=== PATIENT | male | born 1975 | race Caucasian/White ===

== ENCOUNTER → 2020-10-31 | Outpatient (CLI) | payer BC ==
[~2020-10-31] MED LIST: ESOM40CA35; GABA800T4; HYDR-3719; MELO15TA28; NORT75CA2; TIZA4TAB4
== END ==
LOC: M LABSMTC 12:59
PROVIDERS: ATTEND Anesthesiology
DX: Z01.812 Encounter for preprocedural laboratory examination (principal); Z20.822 Contact with and (suspected) exposure to COVID-19

== ENCOUNTER 2020-11-05 12:29 | Day surgery (SDC) | payer OTHER ==
[~2020-11-05] VITALS: Ht 162.6 cm; Wt 86.6 kg
[~2020-11-05 12:29] MED LIST changes: +NS 1,000 ML IV ONE
[2020-11-05] MEDS ORDERED: LIDOCAINE 2% 100MG/5ML SDV (FOR ANES.) As Ordered ONE (13:31)
[2020-11-05] MEDS ORDERED: propofoL 200 MG/20 ML VIAL As Ordered ONE (13:31)
[2020-11-05] MEDS ORDERED: fentaNYL 100 MCG/2 ML INJECTION (J3010) As Ordered ONE (13:31)
--- NOTE | 2020-11-05 14:08 | ROOR ---
Patient Name: Gordon Lundberg Procedure Date: 11/05/2020 1:34 PM Date of : 1975 Age: 45 Room: [facility] Gender: Male Note Status: Finalized Procedure: Upper GI endoscopy Indications: Heartburn Providers: Hernandez ARELLANO MD Referring MD: Manjinder Schroeder Md Requesting Provider: Medicines: Monitored Anesthesia Care Complications: No immediate complications. Procedure: Pre-Anesthesia Assessment: - The heart rate, respiratory rate, oxygen saturations, blood pressure, adequacy of pulmonary ventilation, and response to care were monitored throughout the procedure. The Endoscope was introduced through the mouth, and advanced to the second part of duodenum. The upper GI endoscopy was accomplished without difficulty. The patient tolerated the procedure well. Findings: The examined esophagus was normal. Scattered mild inflammation characterized by erythema was found in the gastric antrum. Biopsies were taken with a cold forceps for histology. Mildly erythematous mucosa was found in the second portion of the duodenum. Biopsies were taken with a cold forceps for histology. Impression: - Normal esophagus. - Mild gastritis. Biopsied. - Otgherwise normal stomach. - Erythematous and slightly flattened duodenal mucosa. Biopsied. - Otherwise normal duodenum. Recommendation: - Use Prilosec (omeprazole) 20 mg PO daily. - No ibuprofen, naproxen, or other non-steroidal anti-inflammatory drugs. - Telephone endoscopist for pathology results in 2 weeks. Procedure Code(s): --- Professional --- 83793, Esophagogastroduodenoscopy, flexible, transoral; with biopsy, single or multiple Diagnosis Code(s): --- Professional --- R12, Heartburn K31.89, Other diseases of stomach and duodenum K29.70, Gastritis, unspecified, without bleeding CPT copyright 2019 [employer]. All rights reserved. The codes documented in this report are preliminary and upon hiv cts specialist review may be revised to meet current compliance requirements. Hernandez Arellano MD Hernandez ARELLANO MD 11/05/2020 2:07:40 PM Electronically signed by Hernandez ARELLANO MD Number of Addenda: 0 Note Initiated On: 11/05/2020 1:34 PM Estimated Blood Loss: Estimated blood loss: none.
--- NOTE | 2020-11-05 14:23 | ROOR ---
Patient Name: Gordon Lundberg Procedure Date: 11/05/2020 1:35 PM Date of : 1975 Age: 45 Room: [facility] Gender: Male Note Status: Finalized Procedure: Colonoscopy Indications: Generalized abdominal pain, Constipation, Chronic diarrhea Providers: Hernandez ARELLANO MD Referring MD: Manjinder Schroeder Md Requesting Provider: Medicines: Monitored Anesthesia Care Complications: No immediate complications. Procedure: Pre-Anesthesia Assessment: - The heart rate, respiratory rate, oxygen saturations, blood pressure, adequacy of pulmonary ventilation, and response to care were monitored throughout the procedure. The Colonoscope was introduced through the anus and advanced to 10 cm into the ileum. The colonoscopy was somewhat difficult due to unsatisfactory bowel prep. Successful completion of the procedure was aided by lavage. The patient tolerated the procedure well. The quality of the bowel preparation was unsatisfactory. (mag citrate/trilyte) Findings: The perianal and digital rectal examinations were normal. The terminal ileum appeared normal. (EXAM: Complete, PREP: Suboptimal) The colon is grossly normal without large tumors or obstructing lesions. Unable to perform adequate detail examination. Small lesions may have been missed. Impression: - Preparation of the colon was unsatisfactory. - The colon is grossly normal without large tumors or obstructing lesions. Unable to perform adequate detail examination. Small lesions may have been missed. - Small internal hemorrhoids. - No specimens collected. Recommendation: - Repeat colonoscopy at next available appointment (within 3 months) because the bowel preparation was suboptimal. - (Rec alternate colon preparation for next colonoscopy) Procedure Code(s): --- Professional --- 57563, Colonoscopy, flexible; diagnostic, including collection of specimen(s) by brushing or washing, when performed (separate procedure) Diagnosis Code(s): --- Professional --- K52.9, Noninfective gastroenteritis and colitis, unspecified K59.00, Constipation, unspecified R10.84, Generalized abdominal pain CPT copyright 2019 [employer]. All rights reserved. The codes documented in this report are preliminary and upon addictions recovery specialist review may be revised to meet current compliance requirements. Hernandez Arellano MD Hernandez ARELLANO MD 11/05/2020 2:22:53 PM Electronically signed by Hernandez ARELLANO MD Number of Addenda: 0 Note Initiated On: 11/05/2020 1:35 PM Estimated Blood Loss: Estimated blood loss: none.
[2020-11-05 14:45] VITALS: BP 165/77
== END 2020-11-05 14:46 | disposition home or self-care (01) ==
LOC: M OPP 12:29
PROVIDERS: ATTEND Internal Medicine Gastroenterology
DX: R10.84 Generalized abdominal pain (principal); K59.00 Constipation, unspecified; K52.9 Noninfective gastroenteritis and colitis, unspecified; R12 Heartburn; D13.1 Benign neoplasm of stomach; D13.2 Benign neoplasm of duodenum; K31.89 Other diseases of stomach and duodenum; K29.70 Gastritis, unspecified, without bleeding; M19.90 Unspecified osteoarthritis, unspecified site; G43.909 Migraine, unspecified, not intractable, without status migrainosus; G62.9 Polyneuropathy, unspecified; G47.30 Sleep apnea, unspecified; F17.210 Nicotine dependence, cigarettes, uncomplicated; R91.8 Other nonspecific abnormal finding of lung field; Z88.2 Allergy status to sulfonamides; Z88.4 Allergy status to anesthetic agent; Z79.899 Other long term (current) drug therapy; Z83.71 Family history of colonic polyps; Z80.1 Family history of malignant neoplasm of trachea, bronchus and lung; Z82.49 Family history of ischemic heart disease and other diseases of the circulatory system; Z80.52 Family history of malignant neoplasm of bladder; Z80.0 Family history of malignant neoplasm of digestive organs
CPT/HCPCS: 43239; 45378; 88305; J3010

== ENCOUNTER 2021-06-27 08:19 | Day surgery (SDC) | payer OTHER ==
[~2021-06-27] VITALS: Ht 162.6 cm; Wt 82.1 kg
--- OUTSIDE RECORDS SUMMARY | 2021-06-27 08:23 | CCD ---
Author Author [facility] Organization [facility] Address Unknown Phone Unavailable Care Team Providers Care Dumper Operator Name Role Phone JB IGLESIAS MD Unavailable Unavailable REINDL, JB HERRERA Unavailable Unavailable REINDL, JB HERRERA Unavailable Unavailable REINDL, JB HERRERA Unavailable Unavailable REINDL, JB HERRERA Unavailable Unavailable REINBOB, JB HERRERA Unavailable Unavailable KELSIE, JB HERRERA Unavailable Unavailable REINBOB, JB HERRERA Unavailable Unavailable REINBOB, JB HERRERA Unavailable Unavailable REINBOB, JB HERRERA Unavailable Unavailable REINBOB, JB HERRERA Unavailable Unavailable REINBOB, JB HERRERA Unavailable Unavailable KLESIE, JB HERRERA Unavailable Unavailable KELSIE, JB HERRERA Unavailable Unavailable REINBOB, JB HERRERA Unavailable Unavailable REINDL, JB HERRERA Unavailable Unavailable REINDL, JB HERRERA Unavailable Unavailable REINDL, JB HERRERA Unavailable Unavailable REINDL, JB HERRERA Unavailable Unavailable REINBOB, JB HERRERA Unavailable Unavailable REINJB ROJAS MD Unavailable Unavailable REINDLJB MD Unavailable Unavailable REINBOB, JB HERRERA Unavailable Unavailable KELSIE, JB HERRERA Unavailable Unavailable KELSIE, JB HERRERA Unavailable Unavailable REINBOB, JB HERRERA Unavailable Unavailable REINBOB, JB HERRERA Unavailable Unavailable REINBOB, JB HERRERA Unavailable Unavailable KELSIE, JB HERRERA Unavailable Unavailable KELSIE, JB HERRERA Unavailable Unavailable KELSIE, JB HERRERA Unavailable Unavailable KELSIE, JB HERRERA Unavailable Unavailable KELSIE, JB HERRERA Unavailable Unavailable KELSIE, JB HERRERA Unavailable Unavailable REINBOB, JB HERRERA Unavailable Unavailable REINBOB, JB HERRERA Unavailable Unavailable KELSIE, JB HERRERA Unavailable Unavailable KELSIE, JB HERRERA Unavailable Unavailable REINDL, JB HERRERA Unavailable Unavailable REINDL, JB HERRERA Unavailable Unavailable REINDL, JB HERRERA Unavailable Unavailable REINDL, JB HERRERA Unavailable Unavailable Ross, H Karishma ROLLER PRINT TENDER Unavailable [phone] Ross, H Karishma ROLLER PRINT TENDER Unavailable [phone] Ross, H Karishma ROLLER PRINT TENDER Unavailable [phone] Ross, H Karishma ROLLER PRINT TENDER Unavailable [phone] Ross, H Karishma ROLLER PRINT TENDER Unavailable [phone] Ross, H Karishma ROLLER PRINT TENDER Unavailable [phone] Ross, H Karishma ROLLER PRINT TENDER Unavailable [phone] Ross, H Karishma ROLLER PRINT TENDER Unavailable [phone] Hadian, Manjinder Unavailable Unavailable Hadian, Manjinder Unavailable Unavailable Hadian, Manjinder Unavailable Unavailable Hadian, Manjinder Unavailable Unavailable Hadian, Manjinder Unavailable Unavailable Hadian, Manjinder Unavailable Unavailable Hadian, Manjinder Unavailable Unavailable Hadian, Manjinder Unavailable Unavailable Hadian, Manjinder Unavailable Unavailable Hadian, Manjinder Unavailable Unavailable Hadian, Manjinder Unavailable Unavailable Hadian, Manjinder Unavailable Unavailable Hadian, Manjinder Unavailable Unavailable Hadian, Manjinder Unavailable Unavailable Hadian, Manjinder Unavailable Unavailable Hadian, Manjinder Unavailable Unavailable Hadian, Manjinder Unavailable Unavailable Hadian, Manjinder Unavailable Unavailable Hadian, Manjinder Unavailable Unavailable Hadian, Manjinder Unavailable Unavailable Hadian, Manjinder Unavailable Unavailable Hadian, Manjinder Unavailable Unavailable Hadian, Manjinder Unavailable Unavailable Hadian, Manjinder Unavailable Unavailable Hadian, Manjinder Unavailable Unavailable Hadian, Manjinder Unavailable Unavailable Hadian, Manjinder Unavailable Unavailable Hadian, Manjinder Unavailable Unavailable Hadian, Manjinder Unavailable Unavailable Hadian, Manjinder Unavailable Unavailable Hadian, Manjinder Unavailable Unavailable Hadian, Manjinder Unavailable Unavailable Hadian, Manjinder Unavailable Unavailable Hadian, Manjinder Unavailable Unavailable Hadian, Manjinder Unavailable Unavailable Hadian, Manjinder Unavailable Unavailable Hadian, Manjinder Unavailable Unavailable Hadian, Manjinder Unavailable Unavailable Hadian, Manjinder Unavailable Unavailable Hadian, Manjinder Unavailable Unavailable Hadian, Manjinder Unavailable Unavailable Hadian, Manjinder Unavailable Unavailable Ross, H Karishma ROLLER PRINT TENDER Unavailable Unavailable Masterson, L Chi PA Unavailable Unavailable Masterson, L Chi PA Unavailable Unavailable Aleja, L Chi PA Unavailable Unavailable KAYLA, M.D. SINGLETON M.D. Unavailable Unavailable KAYLA, M.D. SINGLETON M.D. Unavailable Unavailable KAYLA, M.D. SINGLETON M.D. Unavailable Unavailable KAYLA, M.D. SINGLETON M.D. Unavailable Unavailable KAYLA, M.D. SINGLETON M.D. Unavailable Unavailable KAYLA, M.D. SINGLETON M.D. Unavailable Unavailable KAYLA, M.D. SINGLETON M.D. Unavailable Unavailable KAYLA, M.D. SINGLETON M.D. Unavailable Unavailable KAYLA, M.D. SINGLETON M.D. Unavailable Unavailable KAYLA, M.D. SINGLETON M.D. Unavailable Unavailable KAYLA, M.D. SINGLETON M.D. Unavailable Unavailable KAYLA, M.D. SINGLETON M.D. Unavailable Unavailable KAYLA, M.D. SINGLETON M.D. Unavailable Unavailable KAYLA, M.D. SINGLETON M.D. Unavailable Unavailable BROUGHAL, C AMADA PA Unavailable Unavailable BROUGHAL, C AMADA PA Unavailable Unavailable BROUGHAL, C AMADA PA Unavailable Unavailable BROUGHAL, C AMADA PA Unavailable Unavailable BROUGHAL, C AMADA PA Unavailable Unavailable BROUGHAL, C AMADA PA Unavailable Unavailable Re-disclosure Warning The records that you are about to access may contain information from federally-assisted alcohol or drug abuse programs. If such information is present, then the following federally mandated warning applies: This information has been disclosed to you from records protected by federal confidentiality rules (42 CFR part 2). The federal rules prohibit you from making any further disclosure of this information unless further disclosure is expressly permitted by the written consent of the person to whom it pertains or as otherwise permitted by 42 CFR part 2. A general authorization for the release of medical or other information is NOT sufficient for this purpose. The Federal rules restrict any use of the information to criminally investigate or prosecute any alcohol or drug abuse patient.The records that you are about to access may contain highly sensitive health information, the redisclosure of which is protected by Article 27-F of the [facility] Public Health law. If you continue you may have access to information: Regarding HIV / AIDS; Provided by facilities licensed or operated by the [facility] Office of Mental Health; or Provided by the [facility] Office for People With Developmental Disabilities. If such information is present, then the following [facility] mandated warning applies: This information has been disclosed to you from confidential records which are protected by state law. State law prohibits you from making any further disclosure of this information without the specific written consent of the person to whom it pertains, or as otherwise permitted by law. Any unauthorized further disclosure in violation of state law may result in a fine or mcfp sentence or both. A general authorization for the release of medical or other information is NOT sufficient authorization for further disc losure. Allergies and Adverse Reactions Type Description Substance Reaction Status Data Source(s ) Drug allergy Drug allergy Sulfa (Sulfonamide A ntibiotics) (Sulfa(Sulfonamide Antibiotics)) UNSURE-WAS A CHILD U [facility] Encounters Encounter Providers Location Date Indications Data Source(s ) Outpatient Attender: Manjinder Schroeder ED-LABPNP 12:53:00 PM EDT - 05/22/2021 12:54:00 PM EDT [id number] [facility] [id number] Patient discharged. Outpatient Attender: AGUILA YANG-SDCLOC 021 09:14:00 AM EDT - 03/20/2021 10:49:00 AM EDT LUMABR FACET JOINT PAIN [facility] LUMABR FACET JOINT PAIN Patient discharged. Outpatient Attender: AGUILA YANG-SDCLOC 021 09:29:00 AM EDT - 03/13/2021 10:28:00 AM EDT DEGENERATIVE DISC DISEASE, LUMBAR [facility] DEGENERATIVE DISC DISEASE, LUMBAR Patient discharged. Outpatient Attender: Chi FLORES [facility] 01/29 01:50:00 PM EDT - 02/14/2021 01:51:00 PM EDT [facility] Patient discharged. Outpatient Attender: JB Boogie/Svetlana/Xander/Oliva rojas 01/03/2021 10:15:00 AM EDT [facility] ([facility] Outpatient Attender: JB Boogie/Ankur/Oliva rojas 10/24/2020 10:00:00 AM EST [facility] ([facility]) Outpatient Attender: AGUILA GARZA M.D. [facility] 09/06 02:31:00 PM EST - 09/06/2020 02:32:00 PM EST [facility] Patient discharged. Outpatient Attender: AMADA FLORES [facility]PS[facility]ORT-[facility] 1 09/03/2019 09:00:00 AM EST COVID TESTING [facility] COVID TESTING Outpatient Attender: AGUILA YANG-CPSOMP 06/07 04:30:00 AM EDT - 06/07/2020 04:31:00 AM EDT [facility] Patient discharged. Outpatient Attender: AGUILA YANG-IMACN 020 08:47:00 AM EDT - 05/31/2020 08:48:00 AM EDT FORAMINAL STENOSIS OF CERVICAL REGION [facility] FORAMINAL STENOSIS OF CERVICAL REGION Patient discharged. Outpatient Attender: AGUILA YANG-SDCLOC 020 11:33:00 AM EDT - 05/23/2020 01:15:00 PM EDT RIGHT SHOULDER PAIN [facility] RIGHT SHOULDER PAIN Patient discharged. Outpatient Attender: Karishma Douglas RNPAttender: Karishma Roberts ACCESS RN [facility]PS[facility]-LABPNP 05/18/2020 09:54:00 AM EDT - 05/18/2020 09:55:00 AM EDT PRE OP COVID 19 SCREEN [facility] PRE OP COVID 19 SCREEN Patient discharged. Outpatient Attender: AGUILA GARZA M.D. ED-IMAG 020 02:38:00 PM EDT - 05/04/2020 02:39:00 PM EDT [id number] [facility] [id number] Patient discharged. Immunizations Vaccine Date Status Description Data Source(s) COVID-19 VACCINE Pfizer 12/19/2020 12:00:00 AM EDT completed [facility] Vaccine Series Complete: YESThis Data wa s Submitted to [facility] Via [employer]. COVID-19 VACCINE Pfizer 11/28/2020 12:00:00 AM EDT completed [facility] Vaccine Series Complete: NOThis Data was Submitted to [facility] Via [facility]. Medications Medication Brand Name Start Date Product Form Dose Route Admi nistrative Instructions Pharmacy Instructions Status Indications Reaction Description Data Source(s) Acetaminophen 325 MG / Hydrocodone Bitartrate 10 MG Or al Tablet 10-325 mg HYDROCODONE/ACETAMINOPHEN 02/21/2021 12:00:00 AM EDT tablet 30 TAKE ONE TABLET BY MOUTH EVERY 12 HOURS NEEDED MAXIMUM DAILY DOSE = 2 TABLETS TAKE ONE TABLET BY MOUTH EVERY 12 HOURS NEEDED MAXIMUM DAILY DOSE = 2 TABLETS SOLD: 02/24/2021 [facility] Acetaminophen 325 MG / Hydrocodone Bitartrate 10 MG Or al Tablet 10-325 mg HYDROCODONE/ACETAMINOPHEN 02/01/2021 12:00:00 AM EDT tablet 60 TAKE 1 TABLET BY MOUTH EVERY 6 HOURS NEEDED MAXIMUM DAILY DOSE = MAXIMUM DAILY DOSE = 4 TABLETS TAKE 1 TABLET BY MOUTH EVERY 6 HOURS NEEDED MAXIMUM DAILY DOSE = MAXIMUM DAILY DOSE = 4 TABLETS SOLD: 02/04/2021 [facility] MAGNESIUM CITRATE 01/04/2021 12:00:00 AM EDT solution 296 DRINK 1 10 OUNCE BOTTLE GREEN OR CLEAR ONLY, USE FOR ADDITIONAL PREP 1 DAY BEFORE PROCEDURE DRINK 1 10 OUNCE BOTTLE GREEN OR CLEAR ONLY, USE FOR ADDITIONAL PREP 1 DAY BEFORE PROCEDURE SOLD: 01/04/2021 [facility] 20 mg 01/03/2021 12:00:00 AM EDT capsule,delayed release (DR/EC) 60 TAKE ONE CAPSULE BY MOUTH TWICE A DAY TAKE ONE CAPSULE BY MOUTH TWICE A DAY SOLD: 02/04/2021 [facility] Acetaminophen 325 MG / Hydrocodone Bitartrate 10 MG Or al Tablet 10-325 mg HYDROCODONE/ACETAMINOPHEN 01/03/2021 12:00:00 AM EDT tablet 120 TAKE ONE TABLET BY MOUTH EVERY 6 HOURS NEEDED MAXIMUM DAILY DOSE = 4 TABLETS TAKE ONE TABLET BY MOUTH EVERY 6 HOURS NEEDED MAXIMUM DAILY DOSE = 4 TABLETS SOLD: 01/04/2021 [facility] 17 gram/dose 01/03/2021 12:00:00 AM EDT powder [address] IGLESIAS'S COLON PREPARATION INSTRUCTIONS TAKE DIRECTED ON DR IGLESIAS'S COLON PREPARATION INSTRUCTIONS SOLD: 01/04/2021 [facility] magnesium citrate 58.2 MG/ML Oral Solution Magnesium Citrate 01/03/2021 12:00:00 AM EDT active [facility] ([facility], ) POLYETHYLENE GLYCOL 3350 142 MG/ML Oral Solution [Miralax] M iralax 01/03/2021 12:00:00 AM EDT active [facility] ([facility], ) Lactulose 667 MG/ML Oral Solution Lactulose 01/03/2021 12:00:00 AM EDT ORAL active [facility] ([facility]) Omeprazole 20 MG Delayed Release Oral Capsule Omeprazole 01/03/2021 12:00:00 AM EDT ORAL active [facility] ([facility]) 20 mg 01/03/2021 12:00:00 AM EDT capsule,delayed release (DR/EC) 60 TAKE ONE CAPSULE BY MOUTH TWICE A DAY TAKE ONE CAPSULE BY MOUTH TWICE A DAY SOLD: 01/04/2021 [facility] 10 gram/15 mL 01/03/2021 12:00:00 AM EDT solution 1892 TAKE 30 ML BY MOUTH TWO TIMES A DAY, MAY INCREASE TO 45 ML TWO TIMES A DAY IF NECESSARY FOR CONSTIPATION TAKE 30 ML BY MOUTH TWO TIMES A DAY, MAY INCREASE TO 45 ML TWO TIMES A DAY IF NECESSARY FOR CONSTIPATION SOLD: 01/04/2021 [facility] tizanidine 4 MG Oral Tablet TIZANIDINE HCL 12/21/2020 12:00:00 AM EDT tablet 90 TAKE ONE TABLET BY MOUTH EVERY 8 HOURS NEEDED TAKE ONE TABLET BY MOUTH EVERY 8 HOURS NEEDED SOLD: 12/21/2020 [facility] gabapentin 800 MG Oral Tablet GABAPENTIN 12/21/2020 12:00:00 AM EDT ta blet 90 TAKE ONE TABLET BY MOUTH THREE TIMES A DAY TAKE ONE TABLET BY MOUTH THREE TIMES A DAY SOLD: 12/21/2020 [facility] 15 mg 12/21/2020 12:00:00 AM EDT tablet 30 TAKE ONE TABLET BY MOUTH EVERY DAY TAKE ONE TABLET BY MOUTH EVERY DAY SOLD: 02/04/2021 [facility] 75 mg 12/21/2020 12:00:00 AM EDT capsule 30 TAKE ONE CAPSULE BY MOUTH EVERY DAY AT BED TAKE ONE CAPSULE BY MOUTH EVERY DAY AT BED SOLD: 02/04/2021 [facility] 1 % 12/21/2020 12:00:00 AM EDT gel 100 APPLY FOUR TIMES A DAY DIRECTED APPLY FOUR TIMES A DAY DIRECTED SOLD: 02/04/2021 [facility] gabapentin 800 MG Oral Tablet GABAPENTIN 12/21/2020 12:00:00 AM EDT ta blet 90 TAKE ONE TABLET BY MOUTH THREE TIMES A DAY TAKE ONE TABLET BY MOUTH THREE TIMES A DAY SOLD: 02/04/2021 [facility] tizanidine 4 MG Oral Tablet TIZANIDINE HCL 12/21/2020 12:00:00 AM EDT tablet 90 TAKE ONE TABLET BY MOUTH EVERY 8 HOURS NEEDED TAKE ONE TABLET BY MOUTH EVERY 8 HOURS NEEDED SOLD: 02/04/2021 [facility] 15 mg 12/21/2020 12:00:00 AM EDT tablet 30 TAKE ONE TABLET BY MOUTH EVERY DAY TAKE ONE TABLET BY MOUTH EVERY DAY SOLD: 12/21/2020 [facility] 75 mg 12/21/2020 12:00:00 AM EDT capsule 30 TAKE ONE CAPSULE BY MOUTH EVERY DAY AT BED TAKE ONE CAPSULE BY MOUTH EVERY DAY AT BED SOLD: 12/21/2020 [facility] 1 % 12/21/2020 12:00:00 AM EDT gel 100 APPLY FOUR TIMES A DAY DIRECTED APPLY FOUR TIMES A DAY DIRECTED SOLD: 12/21/2020 [facility] Acetaminophen 325 MG / Hydrocodone Bitartrate 10 MG Or al Tablet 10-325 mg HYDROCODONE/ACETAMINOPHEN 12/20/2020 12:00:00 AM EDT tablet 60 TAKE ONE TABLET BY MOUTH EVERY 6 HOURS NEEDED MAXIMUM DAILY DOSE = 4 TAKE ONE TABLET BY MOUTH EVERY 6 HOURS NEEDED MAXIMUM DAILY DOSE = 4 SOLD: 12/21/2020 [facility] 236-22.74-6.74 -5.86 gram 11/03/2020 12:00:00 AM EST recon s oln 4000 USE DIRECTED - SAME INSTRUCTIONS DR. IGLESIAS USE DIRECTED - SAME INSTRUCTIONS DR. IGLESIAS SOLD: 11/03/2020 [facility] 10-325 mg 11/03/2020 12:00:00 AM EST tablet 120 TAKE 1 TABLET BY MOUTH EVERY 6 HOURS NEEDED MAX = 4 TABS/DAY TAKE 1 TABLET BY MOUTH EVERY 6 HOURS NEEDED MAX = 4 TABS/DAY SOLD: 11/03/2020 [facility] 17 gram/dose 10/26/2020 12:00:00 AM EST powder 510 MIX 17 GRAMS IN LIQUID AND DRINK BY MOUTH TWICE DAILY FOR 7 DAYS THEN ONCE DAILY THEREAFTER MIX 17 GRAMS IN LIQUID AND DRINK BY MOUTH TWICE DAILY FOR 7 DAYS THEN ONCE DAILY THEREAFTER SOLD: 10/26/2020 [facility] POLYETHYLENE GLYCOL 3350 142 MG/ML Oral Solution [Miralax] M iralax 10/24/2020 12:00:00 AM EST completed [facility] ([facility], ) POLYETHYLENE GLYCOL 3350 105 MG/ML / Pot assium Chloride 0.16066 MEQ/ML / Sodium Bicarbonate 0.017 MEQ/ML / Sodium Chloride 0.0479 MEQ/ML Oral Solution [TriLyte] Trilyte 10/24/2020 12:00:00 AM EST completed [facility] ([facility] ) Magnesium Hydroxide 80 MG/ML Oral Suspension Milk Of Magnesi a 10/24/2020 12:00:00 AM EST ORAL completed [facility] ([facility] ) 40 mg 10/11/2020 12:00:00 AM EST capsule,delayed release (DR/EC) 30 TAKE ONE CAPSULE BY MOUTH EVERY DAY TAKE ONE CAPSULE BY MOUTH EVERY DAY SOLD: 10/26/2020 [facility] 1 % 10/05/2020 12:00:00 AM EST gel 100 APPLY FOUR TIMES A DAY DIRECTED APPLY FOUR TIMES A DAY DIRECTED SOLD: 10/05/2020 [facility] 1 % 10/05/2020 12:00:00 AM EST gel 100 APPLY FOUR TIMES A DAY DIRECTED APPLY FOUR TIMES A DAY DIRECTED SOLD: 11/03/2020 [facility] 10-325 mg 2020 12:00:00 AM EST tablet 120 TAKE 1 TABLET BY MOUTH EVERY 6 HOURS NEEDED MAXIMUM DAILY DOSE = 4 TABLETS TAKE 1 TABLET BY MOUTH EVERY 6 HOURS NEEDED MAXIMUM DAILY DOSE = 4 TABLETS SOLD: 10/05/2020 [facility] 4 mg 09/06/2020 12:00:00 AM EST tablets,dose pack 21 TAKE BY MOUTH DIRECTED TAKE BY MOUTH DIRECTED SOLD: 09/06/2020 [facility] 10-325 mg 09/05/2020 12:00:00 AM EST tablet 120 TAKE ONE TABLET BY MOUTH EVERY 6 HOURS MAXIMUM DAILY DOSE = 4 TAKE ONE TABLET BY MOUTH EVERY 6 HOURS MAXIMUM DAILY DOSE = 4 SOLD: 09/06/2020 [facility] gabapentin 800 MG Oral Tablet GABAPENTIN 08/01/2020 12:00:00 AM EST ta blet 90 TAKE ONE TABLET BY MOUTH THREE TIMES A DAY TAKE ONE TABLET BY MOUTH THREE TIMES A DAY SOLD: 10/05/2020 [facility] tizanidine 4 MG Oral Tablet TIZANIDINE HCL 08/01/2020 12:00:00 AM EST tablet 90 TAKE ONE TABLET BY MOUTH EVERY 8 HOURS NEEDED TAKE ONE TABLET BY MOUTH EVERY 8 HOURS NEEDED SOLD: 09/06/2020 [facility] tizanidine 4 MG Oral Tablet TIZANIDINE HCL 08/01/2020 12:00:00 AM EST tablet 90 TAKE ONE TABLET BY MOUTH EVERY 8 HOURS NEEDED TAKE ONE TABLET BY MOUTH EVERY 8 HOURS NEEDED SOLD: 11/03/2020 [facility] 15 mg 08/01/2020 12:00:00 AM EST tablet 30 TAKE ONE TABLET BY MOUTH EVERY DAY TAKE ONE TABLET BY MOUTH EVERY DAY SOLD: 10/05/2020 [facility] 75 mg 08/01/2020 12:00:00 AM EST capsule 30 TAKE ONE CAPSULE BY MOUTH EVERY DAY AT BEDTIME TAKE ONE CAPSULE BY MOUTH EVERY DAY AT BEDTIME SOLD: [facility] 75 mg 08/01/2020 12:00:00 AM EST capsule 30 TAKE ONE CAPSULE BY MOUTH EVERY DAY AT BEDTIME TAKE ONE CAPSULE BY MOUTH EVERY DAY AT BEDTIME SOLD: 021 [facility] gabapentin 800 MG Oral Tablet GABAPENTIN 08/01/2020 12:00:00 AM EST ta blet 90 TAKE ONE TABLET BY MOUTH THREE TIMES A DAY TAKE ONE TABLET BY MOUTH THREE TIMES A DAY SOLD: 11/03/2020 [facility] gabapentin 800 MG Oral Tablet GABAPENTIN 08/01/2020 12:00:00 AM EST ta blet 90 TAKE ONE TABLET BY MOUTH THREE TIMES A DAY TAKE ONE TABLET BY MOUTH THREE TIMES A DAY SOLD: 09/06/2020 [facility] tizanidine 4 MG Oral Tablet TIZANIDINE HCL 08/01/2020 12:00:00 AM EST tablet 90 TAKE ONE TABLET BY MOUTH EVERY 8 HOURS NEEDED TAKE ONE TABLET BY MOUTH EVERY 8 HOURS NEEDED SOLD: 10/05/2020 [facility] 15 mg 08/01/2020 12:00:00 AM EST tablet 30 TAKE ONE TABLET BY MOUTH EVERY DAY TAKE ONE TABLET BY MOUTH EVERY DAY SOLD: 11/03/2020 [facility] 15 mg 08/01/2020 12:00:00 AM EST tablet 30 TAKE ONE TABLET BY MOUTH EVERY DAY TAKE ONE TABLET BY MOUTH EVERY DAY SOLD: 09/06/2020 [facility] 75 mg 08/01/2020 12:00:00 AM EST capsule 30 TAKE ONE CAPSULE BY MOUTH EVERY DAY AT BEDTIME TAKE ONE CAPSULE BY MOUTH EVERY DAY AT BEDTIME SOLD: 021 [facility] 10-325 mg 07/03/2020 12:00:00 AM EST tablet 120 TAKE ONE TABLET BY MOUTH EVERY 6 HOURS NEEDED MAXIMUM DAILY DOSE = 4 TAKE ONE TABLET BY MOUTH EVERY 6 HOURS NEEDED MAXIMUM DAILY DOSE = 4 SOLD: 07/06/2020 [facility] 10-325 mg 06/04/2020 12:00:00 AM EDT tablet 120 TAKE ONE TABLET BY MOUTH EVERY 6 HOURS NEEDED MAXIMUM DAILY DOSE = FOUR TABLETS TAKE ONE TABLET BY MOUTH EVERY 6 HOURS NEEDED MAXIMUM DAILY DOSE = FOUR TABLETS SOLD: 06/04/2020 [facility] gabapentin 800 MG Oral Tablet GABAPENTIN 06/04/2020 12:00:00 AM EDT ta blet 90 TAKE ONE TABLET BY MOUTH THREE TIMES A DAY TAKE ONE TABLET BY MOUTH THREE TIMES A DAY SOLD: 06/04/2020 [facility] gabapentin 800 MG Oral Tablet GABAPENTIN 06/04/2020 12:00:00 AM EDT ta blet 90 TAKE ONE TABLET BY MOUTH THREE TIMES A DAY TAKE ONE TABLET BY MOUTH THREE TIMES A DAY SOLD: 07/06/2020 [facility] 10-325 mg 05/03/2020 12:00:00 AM EDT tablet 120 TAKE ONE TABLET BY MOUTH EVERY 6 HOURS NEEDED MAXIMUM DAILY DOSE = 4 TAKE ONE TABLET BY MOUTH EVERY 6 HOURS NEEDED MAXIMUM DAILY DOSE = 4 SOLD: 05/04/2020 [facility] Esomeprazole 40 MG Delayed Release Oral Capsule ESOMEPRAZOLE MAGNESIUM 04/18/2020 12:00:00 AM EDT capsule,delayed release(DR/EC) 30 TAKE ONE CAPSULE BY MOUTH EVERY DAY TAKE ONE CAPSULE BY MOUTH EVERY DAY SOLD: 07/06/2020 [facility] Esomeprazole 40 MG Delayed Release Oral Capsule ESOMEPRAZOLE MAGNESIUM 04/18/2020 12:00:00 AM EDT capsule,delayed release(DR/EC) 30 TAKE ONE CAPSULE BY MOUTH EVERY DAY TAKE ONE CAPSULE BY MOUTH EVERY DAY SOLD: 04/30/2020 [facility] Esomeprazole 40 MG Delayed Release Oral Capsule ESOMEPRAZOLE MAGNESIUM 04/18/2020 12:00:00 AM EDT capsule,delayed release(DR/EC) 30 TAKE ONE CAPSULE BY MOUTH EVERY DAY TAKE ONE CAPSULE BY MOUTH EVERY DAY SOLD: 06/04/2020 [facility] 40 mg 04/18/2020 12:00:00 AM EDT capsule,delayed release (DR/EC) 30 TAKE ONE CAPSULE BY MOUTH EVERY DAY TAKE ONE CAPSULE BY MOUTH EVERY DAY SOLD: 09/06/2020 [facility] 75 mg 04/03/2020 12:00:00 AM EDT capsule 30 TAKE ONE CAPSULE BY MOUTH AT BEDTIME TAKE ONE CAPSULE BY MOUTH AT BEDTIME SOLD: 05/04/2020 [facility] 75 mg 04/03/2020 12:00:00 AM EDT capsule 30 TAKE ONE CAPSULE BY MOUTH AT BEDTIME TAKE ONE CAPSULE BY MOUTH AT BEDTIME SOLD: 06/04/2020 [facility] 75 mg 04/03/2020 12:00:00 AM EDT capsule 30 TAKE ONE CAPSULE BY MOUTH AT BEDTIME TAKE ONE CAPSULE BY MOUTH AT BEDTIME SOLD: 07/06/2020 [facility] tizanidine 4 MG Oral Tablet TIZANIDINE HCL 04/02/2020 12:00:00 AM EDT tablet 90 TAKE ONE TABLET BY MOUTH EVERY 8 HOURS NEEDED TAKE ONE TABLET BY MOUTH EVERY 8 HOURS NEEDED SOLD: 07/06/2020 [facility] 1 % 04/02/2020 12:00:00 AM EDT gel 100 USE A S DIRECTED FOUR TIMES A DAY USE DIRECTED FOUR TIMES A DAY SOLD: 05/04/2020 [facility] meloxicam 7.5 MG Oral Tablet MELOXICAM 04/02/2020 12:00:00 AM EDT tabl et 60 TAKE ONE TABLET BY MOUTH TWICE A DAY NEEDED FOR PAIN TAKE ONE TABLET BY MOUTH TWICE A DAY NEEDED FOR PAIN SOLD: 06/04/2020 [facility] meloxicam 7.5 MG Oral Tablet MELOXICAM 04/02/2020 12:00:00 AM EDT tabl et 60 TAKE ONE TABLET BY MOUTH TWICE A DAY NEEDED FOR PAIN TAKE ONE TABLET BY MOUTH TWICE A DAY NEEDED FOR PAIN SOLD: 05/04/2020 [facility] 1 % 04/02/2020 12:00:00 AM EDT gel 100 USE A S DIRECTED FOUR TIMES A DAY USE DIRECTED FOUR TIMES A DAY SOLD: 06/04/2020 [facility] 4 mg 04/02/2020 12:00:00 AM EDT tablet 90 TAKE ONE TABLET BY MOUTH EVERY 8 HOURS NEEDED TAKE ONE TABLET BY MOUTH EVERY 8 HOURS NEEDED SOLD: 06/04/2020 [facility] meloxicam 7.5 MG Oral Tablet MELOXICAM 04/02/2020 12:00:00 AM EDT tabl et 60 TAKE ONE TABLET BY MOUTH TWICE A DAY NEEDED FOR PAIN TAKE ONE TABLET BY MOUTH TWICE A DAY NEEDED FOR PAIN SOLD: 07/06/2020 [facility] 4 mg 04/02/2020 12:00:00 AM EDT tablet 90 TAKE ONE TABLET BY MOUTH EVERY 8 HOURS NEEDED TAKE ONE TABLET BY MOUTH EVERY 8 HOURS NEEDED SOLD: 05/04/2020 [facility] 1 % 04/02/2020 12:00:00 AM EDT gel 100 USE A S DIRECTED FOUR TIMES A DAY USE DIRECTED FOUR TIMES A DAY SOLD: 07/06/2020 [facility] gabapentin 800 MG Oral Tablet GABAPENTIN 01/30/2020 12:00:00 AM EDT ta blet 90 TAKE ONE TABLET BY MOUTH THREE TIMES A DAY TAKE ONE TABLET BY MOUTH THREE TIMES A DAY SOLD: 05/04/2020 [facility] Insurance Providers Payer name Policy type / Coverage type Policy ID Covered libertarian ID Covered libertarian's relationship to lambert Policy [employer] Plan Information O BLUE [id number] SP [id number] [employer] [place] [id number] Unemployed [id number] [facility] [place] [id number] Other [id number] [facility] [place] [id number] Other [id number] [facility] [place] [id number] Other [id number] [facility] [place] [id number] Other [id number] MEDICAID [id number] Other [id number] [facility] [id number] 18 [id number] [facility] PLAN [id number] [facility] [id number] 18 [id number] MEDICAID MANAGED CARE [id number] 18 [id number] MEDICAID -RECURRING [id number] MEDICAID -O/P [id number] [facility] [id number] SP [id number] MEDICAID -PHYSICIAN [id number] 1 8 [id number] [facility] [place] [id number] S [id number] Problems, Conditions, and Diagnoses Code Display Name Description Problem Type Effective Dates Data Source(s) Z79.891 group home (current) use of opiate analge sic [facility] (CURRENT) USE OF OPIATE ANALGESIC Diagnosis 03/20/2021 09:14:[address] [facility] M54.12 Radiculopathy, cervical region RADICULOPATHY, CERVICAL REGION Diagnosis 03/20/2021 09:14:[address] [facility] M79.18 MYALGIA, OTHER SITE MYALGIA, OTHER SITE Diagnosis 0 03/20/2021 09:14:[address] [facility] M54.2 Cervicalgia CERVICALGIA Diagnosis 03/20/2021 09:14:[address] [facility] M12.88 Other specific arthropathies , not elsewhere classified, other specified site OTH SPECIFIC ARTHROPATHIES, NEC, OTH SITE Diagnosis 03/20/2021 09:14:[address] [facility] M47.816 Spondylosis without myelopathy or radicu lopathy, lumbar region SPONDYLOSIS W/O MYELOPATHY OR RADICULOPATHY, LUMBAR REGION Diagnosis 03/20/2021 09:14:[address] [facility] G43.019 Migraine without aura, intractable, with out status migrainosus MIGRAINE W/O AURA, INTRACTABLE, WITHOUT STATUS MIGRAINOSUS Diagnosis 02/28 09:29:[address] [facility] M79.12 MYALGIA OF AUXILIARY MUSCLES, HEAD AND N HAILE MYALGIA OF AUXILIARY MUSCLES, HEAD AND NECK Diagnosis 03/13/2021 09:29:[address] [facility] M51.36 Other intervertebral disc degeneration, lumbar region OTHER INTERVERTEBRAL DISC DEGENERATION, LUMBAR REGION Diagnosis 2020 09:29:[address] [facility] Z51.81 Encounter for therapeutic drug level mon itoring ENCOUNTER FOR THERAPEUTIC DRUG LEVEL MONITORING Diagnosis 02/14/2021 01:50:00 PM [facility] M65.4 Radial styloid tenosynovitis [de Quervai n] RADIAL STYLOID TENOSYNOVITIS [DE QUERVAIN] Diagnosis 02/14/2021 01:50:[address] [facility] M47.812 Spondylosis without myelopathy or radicu lopathy, cervical region SPONDYLOSIS W/O MYELOPATHY OR RADICULOPATHY, CERVICAL REGION Diagnosis 02/14/2021 01:50:[address] [facility] M99.81 Other biomechanical lesions of cervical region OTHER BIOMECHANICAL LESIONS OF CERVICAL REGION Diagnosis 02/14/2021 01:50:[address] [facility] M54.5 Low back pain LOW BACK PAIN Diagnosis 02/14/2021 01:50:[address] [facility] M48.02 Spinal stenosis, cervical region SPINAL STENOSIS , CERVICAL REGION Diagnosis 05/31/2020 08:47:[address] [facility] M96.1 Postlaminectomy syndrome, not elsewhere classified POSTLAMINECTOMY SYNDROME, NOT ELSEWHERE CLASSIFIED Diagnosis 05/31/2020 08:47:00 AM ED [facility] M25.511 Pain in right shoulder PAIN IN RIGHT SHOULDER Diagnosi s 05/23/2020 11:33:[address] [facility] Surgeries/Procedures Procedure Description Date Indications Data Source(s) Unclassified drugs 03/20/2021 12:00:[address] [facility] Injection, fentanyl citrate, 0.1 mg 03/20/2021 12:00:[address] [facility] Injection, midazolam hydrochloride, per 1 mg 12:00:[address] [facility] Injection, methylprednisolone acetate, 40 mg 12:00:[address] [facility] DSTR NROLYTC AGNT PARVERTEB FCT SNGL LMBR/SACRAL DESTROY LUM B/SAC FACET JNT 03/20/2021 12:00:[address] [facility] Fluoroscopy of Lumbar Facet Joint(s) FLUOROSCOPY OF LUMBAR F ACET JOINT(S) 03/20/2021 12:00:[address] [facility] Introduction of Destructive Agent into P eripheral Nerves and Plexi, Percutaneous Approach INTRODUCE DESTR AGENT IN PERIPH NRV, PLEXI, PERC 03/20 12:00:[address] [facility] OFFICE OUTPATIENT VISIT 10 MINUTES OFFICE/OUTPATIENT VISIT E ST 02/14/2021 12:00:[address] [facility] Endoscopy Upper GI Biopsy 11/05/2020 12:00:00 AM EST [facility] ([facility]) Colonoscopy Flexible Proximal To Splenic Flexure Diagnostic W/Or 11/05/2020 12:00:00 AM EST [facility] ([facility], ) INJECTION ANESTHETIC AGENT SUPRASCAPULAR NERVE NJX AA&/STRD SPRSCAP NRV 05/23/2020 12:00:00 AM EDT [facility] Introduction of Anesthetic Agent into Pe ripheral Nerves and Plexi, Percutaneous Approach INTRODUCE ANESTHETIC IN PERIPH NRV, PLEXI, PERC 2019 12:00:00 AM EDT [facility] Introduction of Anti-inflammatory into P eripheral Nerves and Plexi, Percutaneous Approach INTRODUCE ANTI-INFLAM IN PERIPH NRV, PLEXI, PERC 05/23 12:00:00 AM EDT [facility] Results ID Date Data Source [id number] 05/22/2021 09:20:00 AM EDT [facility] Name Value Range Interpretation Code Description Data Marilyn rce(s) Supporting Document(s) Respiratory specimen severe acute respir atory syndrome coronavirus 2 (SARS-CoV-2) RNA Negative (qualifier value) [facility] This lab was ordered by [facility] and reported by . ID Date Data Source [id number] 05/22/2021 05:53:00 PM EDT [facility] Name Value Range Interpretation Code Description Data Marilyn rce(s) Supporting Document(s) SARS-CoV-2 RNA INHOUSE Negative Normal (applies to non-n umeric results) [facility] THIS IS A STATE REPORTABLE COMMUNICABLE DISEASE. Testing was performed using the Joome COVID-19 MDx Assay. This test has been authorized by FDA under an (Emergency Use Authorization) EUA for use by authorized laboratories for individuals who are suspected of COVID-19 by their healthcare provider. This test is only authorized for the duration of the declaration that circumstances exist justifying the authorization of emergency use of in vitro diagnostic tests for detection and/or diagnosis of SARS-CoV-2. Methodology: Endpoint RT-PCR. Fact sheets for this EUA assay can be found at the following links: Providers: https://www.fda.gov/media/051127/download Patients : https://www.fda.gov/media/511307/download Negative results do not preclude SARS-CoV-2 infection and should not be used as the sole basis for patient management decisions. Negative results must be combined with clinical observations,patient history, and epidemiological information. ID Date Data Source [id number] [facility] : 1975 Age/Sex: 45M Ordering Provider: Aguila Garza MD Med Rec #: [id number] Reg Status: [facility] Room #: Date of Service: 03/20/21 Report Number: [id number] cc: Send Report To: [id number] XRP/XR C-Arm LOC Reason for exam: PAIN INJ FINDINGS: Fluoroscopy was used during the OR procedure performed same date of service. Forcomplete details, please see OP report. Fluoroscopy time in seconds: 10.8 Number of Exposures: 4 Time Portable Image Performed: Contrast Agent in ml: Method of Administration: REPORT SIGNATURE ON FILE Reported By: Aguila Garza MD Electronically signed by: Aguila Garza MD 03/21/21611 Dictation Date/Time: 03/20/21918 Transcribed Date/Time: 03/21/21610 Calculation Clerk: STEW Name Value Range Interpretation Code Description Data Marilyn rce(s) Supporting Document(s) ID Date Data Source [id number] 03/14/2021 08:04:[address] [facility] Name: LACY ARBOLEDA : 1975 Age/Sex: 45M Ordering Provider: Aguila Garza MD Med Rec #: [id number] Reg Status: [facility] Room #: Date of Service: 03/13/21 Report Number: [id number] cc: Send Report To: [id number] XRP/XR C-Arm LOC Reason for exam: PAIN PROCEDURE FINDINGS: Fluoroscopy was used during the OR procedure performed same date of service. Forcomplete details, please see OP report. Fluoroscopy time in seconds: 10.5 Number of Exposures: 5 Time Portable Image Performed: Contrast Agent in ml: Method of Administration: REPORT SIGNATURE ON FILE Reported By: Aguila Garza MD Electronically signed by: Aguila Garza MD 03/14/21803 Dictation Date/Time: 03/13/21930 Transcribed Date/Time: 03/14/21803 Calculation Clerk: STEW Name Value Range Interpretation Code Description Data Marilyn rce(s) Supporting Document(s) ID Date Data Source [id number] 11/05/2020 01:49:00 PM EST [facility] ([facility], ) Name Value Range Interpretation Code Description Data Marilyn rce(s) Supporting Document(s) Surgical pathology study Laboratory test result [facility] ([facility], ) <content>FINAL DIAGNOSIS</content>
< content></content>
<content>A - Duodenum, biopsy:</content>
<content>Duodenal mucosa with intact villous architecture.</content>
<content>No evidence for celiac disease.</content>
<content></content>
<content>B - Stomach, biopsy:</content>
<content>Gastric mucosa with mild reactive gastropathy.</content>
<content>No evidence for H. pylori like organisms on H & E stain.</content>
<content>11/07/2020 - 1030</content>
<content></content>
<content>CLINICAL DIAGNOSIS</content>
<content></content>
<content>Reflux and rectal bleeding</content>
<content>11/06/2020 - 1338</content>
<content></content>
<content>GROSS DIAGNOSIS</content>
<content></content>
<content>A - Received in formalin labeled "duodenal biopsy" consists of three</content>
<content>fragments of dickens tissue, 0.5 x 0.3 x 0.2 cm in aggregate. All in one.</content>
<content></content>
<content>B - Received in formalin labeled "gastric biopsy" consists of two</content>
<content>fragments of dickens tissue, 0.4 x 0.3 x 0.2 cm in aggregate. All in one.</content>
<content>-SV</content>
<content>11/06/20201338</content>
<content></content>
<content>Signed RUDOLPH MCKENNA MD 11/07/2020 1404</content>
<content></content> ID Date Data Source [id number] 10/31/2020 02:00:00 PM EST [facility] Name Value Range Interpretation Code Description Data Marilyn rce(s) Supporting Document(s) SARS coronavirus 2 RNA Not Detected [facility] This lab was ordered by [facility] and reported by [facility]. ID Date Data Source [id number] 08/14/2020 06:30:00 AM EST [facility] Name Value Range Interpretation Code Description Data Marilyn rce(s) Supporting Document(s) SARS-CoV-2 DANNA result NotDetected Normal (applies to non-n umeric results) [facility] Testing was performed using the hali(R) SARS-CoV-2 test. This nucleic acid amplification test was developed and its performance characteristics determined by [employer]. Nucleic acid amplification tests include PCR and TMA. This test has not been FDA cleared or approved. This test has been authorized by FDA under an Emergency Use Authorization (EUA). This test is only authorized for the duration of time the declaration that circumstances exist justifying the authorization of the emergency use of in vitro diagnostic tests for detection of SARS-CoV-2 virus and/or diagnosis of COVID-19 infection under section 564(b)(1) of the Act, 21 U.S.C. 360bbb-3(b) (1), unless the authorization is terminated or revoked sooner. When diagnostic testing is negative, the possibility of a false negative result should be considered in the context of a patient's recent exposures and the presence of clinical signs and symptoms consistent with COVID-19. An individual without symptoms of COVID- 19 and who is not shedding SARS-CoV-2 virus would expect to have a negative (not detected) result in this assay. Performed at: [address] [id number] Loin Puller: Adilene Mishra MD, Phone: [phone] ID Date Data Source [id number] 05/31/2020 11:49:[address] [facility] Name: LACY ARBOLEDA : 1975 Age/Sex: 44M Ordering Provider: Aguila Garza MD Med Rec #: [id number] Reg Status: REG REF Room #: Date of Service: 05/31/20 Report Number: [id number] cc:Aguila Garza MD; PCP None Send Report To: [id number] MRI/MRI C Spine No Contrast Reason for exam: FORAMINAL STENOSIS OF CERVICAL REGION FINDINGS: Your patient is status post anterior fusion at C6-7 level. There is normal alignment and position of the bones. No intramedullary lesions. No signs of any intrathecal lesions. There is some mild disc bulging at the C2-3 and C3-4 and C4-5 disc space levels. There is also some bulging at 5-6. At the C5-6 level there is a right paracentral osteophyte/spur complex projection posteriorly by 2.5 mm. That effaces the right lateral recess of the thecal sac and narrows the medial aspectof the neuroforamen. At the C4-5 level there is a second right paracentral osteophyte/disc complex projecting in a posterolateral projection by approximately 3 mm, also effacing the right lateral recess and narrowing the medial aspect of the neuroforamen. No other significant findings otherwise noted. IMPRESSION: Status post fusion with right paracentral to lateral osteophyte/disc complexes noted at the 4-5 and 5-6 levels resulting is s ome bilateral effacement to the lateral recesses and some neuroforaminal stenosis. Fluoroscopy time in seconds: Number of Exposures: Time Portable Image Performed: Contrast Agent in ml: Method of Administration: REPORT SIGNATURE ON FILE Reported By: Ismael Boucher MD <Electronically signed by Jed Boucher MD> 05/31/20 1548 Dictation Date/Time: 05/31/20 1033 Transcribed Date/Time: 05/31/20 1149 Calculation Clerk: MELL Name Value Range Interpretation Code Description Data Marilyn rce(s) Supporting Document(s) ID Date Data Source [id number] 05/24/2020 07:43:00 AM EDT [facility] Name: LACY ARBOLEDA : 1975 Age/Sex: 44M Ordering Provider: Aguila Garza MD Med Rec #: [id number] Reg Status: [facility] Room #: Date of Service: 05/23/20 Report Number: [id number] cc:Aguila Garza MD; Manjinder Schroeder MD Send Report To: [id number] XRP/XR C-Arm No Charge Reason for exam: SUPRASCAPULAR NERVE BLOCK FINDINGS FROM OP REPORT: The patient was discussed on the procedure, risks, benefits, complications, alternatives and consents to the procedure. The patient denies any recent po intake, use of blood thinners, coagulopathy, or recent infections. The patient was taken to the operating room and placed in the prone position and standard monitors were attached. Final time out was performed to confirm correct patient, procedure, and site. The superior and posterior aspect of bilateral shoulderswere prepped with chlorhexidine, sterilely drape, and sterile towels. Sterile technique was used with the use of hat, mask and sterile gloves. The fluoroscope was placed in the AP projection over the shoulder. The area of the suprascapular notch was identified. Subsequently a line was marked along the entire length of the scapular spine, and a subsequent line was then drawn tobisect the first line and 2 cm superiorly and 2 cm medially, that area was marked for injection. The needle was a 25 gauge 1.5 inch needle was used to anesthetize to skin using lidocaine 2% 2 mls. Subsequently a 25 gauge 3.5 inch spinal needle was advanced under serial fluoroscopy until contacting the suprascapular notch. After negative aspiration, a mixture of bupivacaine 0.25% 6 mL with Depo-Medrol 40 mg was injected through the needle without significant pain or paresthesia on injection. The needle was then removed from the patient's skin. The needle was finally removed. Band-aids were applied over the injection site. The patient tolerated the procedure very well without any complications or discomfort, and was transported to recovery room for 15 minutesof observation. If stable the patient will be discharged home with an escort to be followed up in the pain management clinic in one month. Fluoroscopy time in seconds: 15.7 Number of Exposures: 1 Time Portable Image Performed: Contrast Agent in ml: Method of Administration: REPORT SIGNATURE ON FILE Reported By: Aguila Garza MD 05/24/20 0744 Dictation Date/Time: 05/23/20 1322 Transcribed Date/Time: 05/24/20 0743 Calculation Clerk: BRISSA Name Value Range Interpretation Code Description Data Marilyn rce(s) Supporting Document(s) ID Date Data Source [id number] 05/19/2020 06:29:[address] [facility] Name Value Range Interpretation Code Description Data Marilyn rce(s) Supporting Document(s) Respiratory specimen severe acute respir atory syndrome coronavirus 2 (SARS-CoV-2) RNA [facility] This lab was ordered by [facility] [place] and reported by [facility]. ID Date Data Source [id number] 05/19/2020 06:28:00 PM EDT [facility] COVID-19 Specimen Source NASOPHARYNGEAL Is Patient admitted or to be admitted? NFirst test? YESEmployed in healthcare? NOSymptomatic per CDC? NOHospitalized? NOICU? NOResident in congregated care? ex long term, ARC NO? NO Name Value Range Interpretation Code Description Data Marilyn rce(s) Supporting Document(s) SARS-CoV-2 RNA Negative Normal (applies to non-numeric r esults) [facility] 2019-novel Coronavirus (2019-nCoV) not d etected by the qRT-PCR assay. Consider testing for other respiratory viruses or re-collecting for 2019-nCoV testing. Note: Optimum timing for peak viral levels during infections caused by 2019- nCoV have not been determined. Collection of multiple specimens from the same patient may be necessary to detect the virus. Limitations Positive results are indicative of active infection with SARS-CoV-2 but do not rule out bacterial infection or co-infection with other viruses. The agent detected may not be the definite cause of disease. In addition, detection of viral RNA may not indicate the presence of infectious virus or that SARS-CoV-2 is the causative agent for clinical symptoms. Negative results do not preclude SARS-CoV-2 infection and should not be used as the sole basis for patient management decisions. Negative results must be combined with clinical observations, patient history, and epidemiological information. False negative results may also occur if amplification inhibitors are present in the specimen or if inadequate numbers of organisms are present in the specimen. Optimum specimen types and timing for peak viral levels during infections caused by SARS-CoV-2 have not been fully determined. Collection of multiple specimens (types and time points) from the same patient may be necessary to detect the virus. The test was validated for use with upper respiratory specimens obtained via nasopharyngeal or oropharyngeal swabs in VTM, UTM, M4, M5, M6, saline, and MTM media. The performance of this test has not been established for other specimens. Specimens collected using other FDA recommended Specimen Collection Materials listed in the FDA COVID-19 [employer] communication (November 24, 2019) are processed with the caveat that they were not all validated for use with this test and the result must be interpreted in this context. Furthermore, a false negative results may occur if a specimen is improperly collected, transported or handled. If the virus mutates in the RT- PCR target region, SARS-CoV-2 may not be detected or may be detected less predictably. Inhibitors or other types of interference may produce a false negative result. An interference study evaluating the effect of common cold medications was not performed. This test is not FDA-cleared but its performance characteristics were established by our CLIA-certified, CAP-accredited, high complexity laboratory in accordance with CLIA regulations, [employer] [place] [employer] (CAP) guidelines (Nov 17, 2019), and FDA guidance (Oct 29, 2019). This test is only for use under the Food and Drug Administration's Emergency Use Authorization. THIS IS A STATE REPORTABLE COMMUNICABLE DISEASE. Performing Lab Normal (applies to non-numeric r esults) [facility] COVID-19 Specimen Source: ACCESS RN First test ?: Y Employed in healthcare?: N Symptomatic per CDC?: N Hospitalized?: N ICU?: N Resident in congregated care? ex long term, ARC: N ?: N Please indicate the Triage TierN Test performed or referred by The [address] [address] ID Date Data Source [id number] 05/05/2020 11:26:00 AM EDT [facility] Imaging Services Department Imaging Report [address], [place] [address] %(RAD)RES..mtdd.print.filter("line") Name: LACY ARBOLEDA : 1975 Age/Sex: 44M Ordering Provider: Aguila Garza MD Med Rec #: [id number] Reg Status: [facility] REF Room #: Date of Service: 05/04/20 Report Number: [id number] cc:Aguila Garza MD; Manjinder Schroeder MD Send Report To: [id number] XRP/XR C Spin Ap,Lat &/or Odontoid Reason for exam: CERVICAL RADICULOPATHY Comparison is made to CT scan from 01/05/19. FINDINGS: Surgical plate with screws are again seen at C6 and C7 status post fusion. The hardware appears un remarkable with anatomical alignment. No fracture or dislocation is identified. There is some moderate to severe spurring at C5 and mild to moderate at C6. There is mild spurring also seen at C3 and C4. Mild disk space narrowing is present at C3-4 and moderate at C5-6. These findings appear stable. The prevertebral soft tissues are within normal limits. The odontoid is intact. IMPRESSION: No fracture/dislocation. Hardware in place at C6 and C7 status post fusion with anatomical alignment. Mild to moderate degenerative disease ofcervical spine. Time portable performed: Fluoroscopy time in seconds: Number of Exposures: Contrast Agent in ml: Method of Administration: REPORT SIGNATURE ON FILE Reported By: Freddie Long MD <Electronically signed by Freddie Long MD> 05/08/20 1158 Dictation Date/Time: 05/04/20 2310 Transcribed Date/Time: 05/05/20 1126 Calculation Clerk: STEW Name Value Range Interpretation Code Description Data Mrailyn rce(s) Supporting Document(s) Procedure Social History No Information Vital Signs ID Date Data Source UNK Name Value Range Interpretation Code Description Data Source(s) Body surface area Derived from formula 1.92 m2 1.92 m2 [facility] ([facility], ) Body height 64 [in_i] 64 [in_i] [facility] 5'4" Body weight 192.00 [lb_av] 192.00 [lb_av] [facility] ([facility]) Body mass index (BMI) [Ratio] 33.0 kg/m2 33.0 k g/m2 [facility] ([facility]) [place] body weight 130 [lb_av] 130 [lb_av] [facility] ([facility]) Body weight 87.091 kg 87.091 kg [facility] ([facility] Systolic blood pressure 134 mm[Hg] 134 mm[Hg] [facility] ([facility]) Diastolic blood pressure 83 mm[Hg] 83 mm[Hg] [facility] ([facility]) Systolic blood pressure 143 mm[Hg] 143 mm[Hg] [facility] ([facility]) Diastolic blood pressure 92 mm[Hg] 92 mm[Hg] [facility] ([facility]) Body height 64 [in_i] 64 [in_i] [facility] 5'4" Body weight 195.00 [lb_av] 195.00 [facility]_av] [facility] Body mass index (BMI) [Ratio] 33.5 kg/m2 33.5 k g/m2 [facility] ([facility]) [place] body weight 130 [lb_av] 130 [lb_av] [facility] Body weight 88.452 kg 88.452 kg [facility] Body surface area Derived from formula 1.94 m2 1.94 m2 [facility] CENTER ([facility]) ID Date Data Source [id number] 04/03/2021 06:42:[address] [facility] Name Value Range Interpretation Code Description Data Source(s) Weight 3040 3040 [facility] Temperature 98.[address] [facility] Respiratory Rate 18 18 [facility] Pulse Rate 86 86 [facility] Height 64 64 [facility] Blood Pressure 147/102 147/102 [facility] Weight 3040 3040 [facility] Temperature 98.[address] [facility] Respiratory Rate 18 18 [facility] Pulse Rate 86 86 [facility] Height 64 64 [facility] Blood Pressure 147/102 147/102 [facility] Hospital ID Date Data Source [id number] 03/22/2021 07:10:00 AM EDT [facility] Name Value Range Interpretation Code Description Data Source(s) Weight Measurement Method 1 1 [facility] Weight 3104 3104 [facility] Temperature 98.[address] [facility] Respiratory Effort 1 1 [facility] Respiratory Rate 18 18 [facility] Pulse Rate 88 88 [facility] Height 64 64 [facility] Blood Pressure 159/85 159/85 [facility] Weight Measurement Method 1 1 [facility] Weight 3104 3104 [facility] Temperature 98.[address] [facility] Respiratory Effort 1 1 [facility] Respiratory Rate 18 18 [facility] Pulse Rate 88 88 [facility] Height 64 64 [facility] Blood Pressure 159/85 159/85 [facility] ID Date Data Source [id number] 05/29/2020 07:34:00 AM EDT [facility] Hospital Name Value Range Interpretation Code Description Data Source(s) Weight 2864 2864 [facility] Temperature 98.[address] [facility] Respiratory Effort 1 1 [facility] Respiratory Rate 20 20 [facility] Pulse Rate 88 88 [facility] Height 64 64 [facility] Blood Pressure 135/94 135/94 [facility] Weight 2864 2864 [facility] Temperature [address] [facility] Respiratory Effort 1 1 [facility] Respiratory Rate 20 20 [facility] Pulse Rate 88 88 [facility] Height 64 64 [facility] Blood Pressure 135/94 135/94 [facility]
[2021-06-27] MEDS ORDERED: propofoL 200 MG/20 ML VIAL As Ordered ONE (08:55)
[2021-06-27] MEDS ORDERED: LIDOCAINE 2% 100MG/5ML SDV (FOR ANES.) As Ordered ONE (08:55)
--- NOTE | 2021-06-27 09:29 | ROOR ---
Patient Name: Gordon Lundberg Procedure Date: 06/27/2021 8:50 AM Date of : 1975 Age: 45 Room: [id number] Gender: Male Note Status: Finalized Procedure: Colonoscopy Indications: Irritable bowel syndrome with constipation Providers: Hernandez Arellano MD Referring MD: Manjinder Schroeder MD Requesting Provider: Medicines: Monitored Anesthesia Care Complications: No immediate complications. Procedure: Pre-Anesthesia Assessment: - The heart rate, respiratory rate, oxygen saturations, blood pressure, adequacy of pulmonary ventilation, and response to care were monitored throughout the procedure. The Colonoscope was introduced through the anus and advanced to 1 cm into the ileum. The colonoscopy was performed without difficulty. The patient tolerated the procedure well. The quality of the bowel preparation was fair. (Prep: Mag citrate 300 cc and Miralax 2.0 -510 gm) Findings: Skin tags were found on perianal exam. Internal hemorrhoids were found during retroflexion. The hemorrhoids were medium-sized. A diminutive polyp was found in the hepatic flexure. The polyp was sessile. The polyp was removed with a cold snare. Resection and retrieval were complete. The exam was otherwise without abnormality on direct and retroflexion views. (EXAM: Complete, PREP: Suboptimal) Impression: - (EXAM: Complete, PREP: Suboptimal/fair). - Perianal skin tags found on perianal exam. - Internal hemorrhoids. - One diminutive polyp at the hepatic flexure, removed with a cold snare. Resected and retrieved. - The examination was otherwise normal on direct and retroflexion views. Recommendation: - Repeat colonoscopy in 3 years because the bowel preparation was suboptimal. - Repeat colonoscopy in 3 years for surveillance. - Consider Movantik (opioid related constipation). Please discuss this with your prescribing provider. Procedure Code(s): --- Professional --- 12305, Colonoscopy, flexible; with removal of tumor(s), polyp(s), or other lesion(s) by snare technique Diagnosis Code(s): --- Professional --- K58.1, Irritable bowel syndrome with constipation K64.4, Residual hemorrhoidal skin tags K63.5, Polyp of colon K64.8, Other hemorrhoids CPT copyright 2019 [employer]. All rights reserved. The codes documented in this report are preliminary and upon stationary equipment mechanic review may be revised to meet current compliance requirements. Hernandez Arellano MD Hernandez Arellano MD 06/27/2021 9:29:02 AM Electronically signed by Hernandez Arellano MD Number of Addenda: 0 Note Initiated On: 06/27/2021 8:50 AM Estimated Blood Loss: Estimated blood loss: none.
[2021-06-27 09:35] VITALS: BP 139/81
== END 2021-06-27 09:42 | disposition home or self-care (01) ==
LOC: M OPP 08:19
PROVIDERS: ATTEND Internal Medicine Gastroenterology
DX: D12.3 Benign neoplasm of transverse colon (principal); K64.8 Other hemorrhoids; K58.1 Irritable bowel syndrome with constipation; Z80.0 Family history of malignant neoplasm of digestive organs; Z80.1 Family history of malignant neoplasm of trachea, bronchus and lung; Z80.52 Family history of malignant neoplasm of bladder; Z83.71 Family history of colonic polyps; Z88.1 Allergy status to other antibiotic agents
CPT/HCPCS: 45385; 88305; U0002

== ENCOUNTER → 2023-08-03 | Outpatient (REF) | payer OTHER ==
[~2023-08-03] MED LIST changes: -NS 1,000 ML IV ONE; +TIZA10TA; -TIZA4TAB4
== END ==
LOC: M LAB REF 15:06
PROVIDERS: ATTEND Internal Medicine Gastroenterology
DX: K58.2 Mixed irritable bowel syndrome (principal)

== ENCOUNTER 2023-09-28 10:44 | Day surgery (SDC) | payer OTHER ==
[~2023-09-28] VITALS: Ht 162.6 cm; Wt 81.6 kg
[~2023-09-28 10:44] MED LIST changes: -ESOM40CA35; +ESOM40CA35 PO; +EXCETAB32 PO; +NS 1,000 ML IV ONE; +SILD25TA2 PO
[2023-09-28 11:08] VITALS: TEMP 97.4
[2023-09-28] MEDS ORDERED: propofoL 500 MG/50 ML VIAL As Ordered ONE (12:51)
[2023-09-28] MEDS ORDERED: LIDOCAINE 2% 100MG/5ML SDV (FOR ANES.) As Ordered ONE (12:51)
[2023-09-28 12:58] VITALS: BP 138/89; O2SAT 100
== END 2023-09-28 13:10 | disposition home or self-care (01) ==
LOC: M OPP 10:44
PROVIDERS: ATTEND Internal Medicine Gastroenterology
DX: D12.0 Benign neoplasm of cecum (principal); D12.5 Benign neoplasm of sigmoid colon; K64.8 Other hemorrhoids; R63.4 Abnormal weight loss; R19.4 Change in bowel habit; R12 Heartburn; R07.9 Chest pain, unspecified; G57.30 Lesion of lateral popliteal nerve, unspecified lower limb; Z79.1 Long term (current) use of non-steroidal anti-inflammatories (NSAID); Z79.899 Other long term (current) drug therapy; Z88.2 Allergy status to sulfonamides

== ENCOUNTER 2023-10-27 20:36 | Emergency (ER) | payer OTHER ==
[~2023-10-27] VITALS: Ht 162.6 cm; Wt 81.8 kg
[~2023-10-27 20:36] MED LIST changes: -NS 1,000 ML IV ONE
[2023-10-28] MEDS ORDERED: KETOROLAC 30 MG/ML 1ML VIAL As Ordered ONE (02:51)
[2023-10-28] MEDS: METHOCARBAMOL 1,000 MG/10 ML VIAL IV ONE (02:59)
[2023-10-28] MEDS: KETOROLAC 30 MG/ML 1ML VIAL IV ONE (03:01)
[2023-10-28] MEDS ORDERED: ISOVUE-370 76% 100ML VIAL As Ordered ONE (03:11)
[2023-10-28 03:41] LABS: BASO # 0.1 10^3/uL (0.0-0.2); BASO % 0.6 % (0.0-1.0); EOS # 0.3 10^3/uL (0.0-0.5); EOS % 3.4 % (0.0-3.0); HEMATOCRIT 42.4 % (42.0-52.0); HEMOGLOBIN 14.7 g/dl (13.5-17.5); LYMPH # 3.4 10^3/uL (1.5-5.0); LYMPH % 34.2 % (24.0-44.0); MEAN CORPUSCULAR HEMOGLOBIN 34.1 pg (27.0-33.0); MEAN CORPUSCULAR HGB CONC 34.7 g/dl (32.0-36.5); MEAN CORPUSCULAR VOLUME 98.4 fl (80.0-96.0); MONO # 0.7 10^3/uL (0.0-0.8); MONO % 6.9 % (2.0-8.0); NEUTROPHILS # 5.5 10^3/uL (1.5-8.5); NEUTROPHILS % 54.6 % (36.0-66.0); PLATELET COUNT, AUTOMATED 290 10^3/uL (150-450); RED BLOOD COUNT 4.31 10^6/uL (4.30-6.10)
[2023-10-28 04:05] LABS: ALBUMIN 3.9 G/DL (3.2-5.2); BILIRUBIN,DIRECT 0.1 MG/DL (<0.4); BILIRUBIN,TOTAL 0.4 MG/DL (0.3-1.2); TOTAL PROTEIN 6.3 G/DL (5.7-8.2)
[2023-10-28] MEDS ORDERED: METH-1165 PO (05:49)
[2023-10-28] MEDS ORDERED: NAPR-837 PO (05:49)
[2023-10-28] MEDS ORDERED: OXYCODONE/APAP 5MG/325MG(HOME DOSE PACK) PO ONE (05:50)
[2023-10-28 06:02] VITALS: BP 139/86; TEMP 98.5; O2SAT 100
== END 2023-10-28 06:04 | disposition home or self-care (01) ==
LOC: M ED 20:36
DX: M54.50 Low back pain, unspecified (principal); K58.9 Irritable bowel syndrome, unspecified; M51.36 Other intervertebral disc degeneration, lumbar region; F17.200 Nicotine dependence, unspecified, uncomplicated; F10.10 Alcohol abuse, uncomplicated; Z88.2 Allergy status to sulfonamides; Z79.82 Long term (current) use of aspirin; Z79.899 Other long term (current) drug therapy
CPT/HCPCS: 72110; 74177; 80047; 80076; 83690; 85025; 96374; 96375; 99284; J1885; J2800; Q9967